=== PATIENT | male | born 1965 | race Caucasian/White ===

== ENCOUNTER 2021-01-19 20:27 | Emergency (ER) | payer MEDICAID ==
[~2021-01-19] VITALS: Ht 182.9 cm; Wt 155.0 kg
[2021-01-19 20:29] VITALS: BP 150/92
== END 2021-01-19 22:25 | disposition left against medical advice (07) ==
LOC: ER 20:55
DX: S81.812A Laceration without foreign body, left lower leg, initial encounter (principal); W01.0XXA Fall on same level from slipping, tripping and stumbling without subsequent striking against object, initial encounter; Y93.89 Activity, other specified; Y92.252 Music hall as the place of occurrence of the external cause
CPT/HCPCS: 99283; Z7610